=== PATIENT | female | born 1945 | race Caucasian/White ===

== ENCOUNTER → 2016-05-24 | Outpatient (CLI) | payer MEDICARE | LOC: MAMO 05-13 14:30 → US 05-17 15:30 → MAMO 09:21 | DX: R92.8 Other abnormal and inconclusive findings on diagnostic imaging of breast (principal) | CPT/HCPCS: G0206 ==

== ENCOUNTER → 2020-06-16 | Outpatient (CLI) | payer MEDICARE ==
[~2020-06-16] MED LIST: ACULAR5 ML OP; ASPIRIN 325MG325 MG PO; ATENOLOL-CHLOR1 EACH PO; BUSPIRONE HCL5 MG PO; COLCRYS0.6 MG PO; ELIQUIS 2.5 MG2.5 MG PO; ENDOCET 5-3251 EACH PO; FLECAINIDE ACET50 MG PO; GLUCOTROL XL5 MG PO; HYDROCODON-ACE1 EAC2 PO; MAXZIDE 37.5 M1 EACH PO; MOXIFLOXACIN3 M1 OP; OMEPRAZOLE20 M2 PO; PREDNISOLONE ACE5 ML OP; TIROSINT100 MCG PO; VENLAFAXINE HC150 M1 PO; VITAMIN D31250 MCG PO; ZETIA 10 MG TAB10 MG PO
== END ==
LOC: MAMO 10:30
DX: Z12.31 Encounter for screening mammogram for malignant neoplasm of breast (principal)
CPT/HCPCS: 77063; 77067

== ENCOUNTER 2020-07-15 20:30 | Emergency (ER) | payer MEDICARE ==
[~2020-07-15 20:30] MED LIST changes: -ENDOCET 5-3251 EACH PO
[2020-07-15] MEDS ORDERED: ENDOCET 5-3251 EACH PO (21:15)
== END 2020-07-15 21:30 | disposition home or self-care (01) ==
LOC: ER1 20:30
DX: S22.41XA Multiple fractures of ribs, right side, initial encounter for closed fracture (principal); I10 Essential (primary) hypertension; W01.0XXA Fall on same level from slipping, tripping and stumbling without subsequent striking against object, initial encounter; Y92.009 Unspecified place in unspecified non-institutional (private) residence as the place of occurrence of the external cause
CPT/HCPCS: 99283

== ENCOUNTER → 2021-05-04 | Outpatient (CLI) | payer MEDICARE ==
[~2021-05-04] MED LIST changes: +ENDOCET 5-3251 EACH PO
== END ==
LOC: RAD 04-02 09:00
DX: K57.30 Diverticulosis of large intestine without perforation or abscess without bleeding (principal)
CPT/HCPCS: 74270

== ENCOUNTER → 2021-12-17 | Outpatient (CLI) | payer MEDICARE | LOC: MAMO 12-09 11:30 | DX: Z12.31 Encounter for screening mammogram for malignant neoplasm of breast (principal); Z78.0 Asymptomatic menopausal state | CPT/HCPCS: 77063; 77067 ==